=== PATIENT | female | born 1985 | race Caucasian/White ===

== ENCOUNTER 2022-09-26 13:40 | Emergency (ER) | payer MEDICAID ==
[~2022-09-26] VITALS: Ht 165.1 cm; Wt 109.0 kg
[2022-09-26 13:43] VITALS: BP 117/67
[2022-09-26] MEDS ORDERED: PREDNISONE 20MG TABLET PO ONE (14:00)
[2022-09-26] MEDS ORDERED: ALBU6.7H3 INH (14:36)
[2022-09-26] MEDS ORDERED: P50 MT (14:36)
== END 2022-09-26 18:36 | disposition home or self-care (01) ==
LOC: ER 15:19
DX: J45.901 Unspecified asthma with (acute) exacerbation (principal); Z88.0 Allergy status to penicillin
CPT/HCPCS: 71045; 99283; J7512